=== PATIENT | male | born 1970 | race African-American/Black ===

== ENCOUNTER 2017-07-14 11:30 | Emergency (ER) | payer OTHER ==
[~2017-07-14] VITALS: Ht 190.5 cm; Wt 104.3 kg
[~2017-07-14 11:30] MED LIST: NORCO 5-325 TA1 EACH PO; ULTRAM 50MG TAB50 MG PO
[2017-07-14 11:32] VITALS: BP 133/93
[2017-07-14] MEDS ORDERED: IBUPROFEN 800800 M1 PO (11:55)
[2017-07-14] MEDS ORDERED: AMOXICILLIN 50500 MG PO (11:55)
== END 2017-07-14 12:25 | disposition home or self-care (01) ==
LOC: ER 11:30
DX: K02.9 Dental caries, unspecified (principal); K04.7 Periapical abscess without sinus